=== PATIENT | female | born 2000 | race Caucasian/White ===

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

== ENCOUNTER 2022-01-18 21:42 | Inpatient (IN) | payer OTHER, MEDICAID, SELFPAY ==
[2022-01-18] VITALS (9 sets, daily range): BP systolic 95–104; BP diastolic 52–65; PULSE 59–78; RESP 18; TEMP 35.7; BMI 23.3
[2022-01-18] MEDS: miSOPROStol 100 mcg tablet 25 MCG VAGINAL (23:00)
[2022-01-18] MEDS: dextrose 5%-lactated ringers 1,000 ML 125 ML IV (23:00)
[2022-01-18 23:51] LABS: Basophils % 0.3 %; Eosinophils # 0.1 10^3/uL (0.0-0.8); Eosinophils % 0.6 %; Hematocrit 35.9 % (37.0-47.0); Hemoglobin 12.2 g/dL (11.5-15.3); Lymphocytes # 2.3 10^3/uL (1.5-6.5); Lymphocytes % 20.4 %; Mean Corpuscular Hemoglobin 29.8 pg (28.0-34.0); Mean Corpuscular Volume 87.8 fl (81-99); Mean Platelet Volume 9.6 fL (7.4-10.4); Monocytes % 8.6 %; Neutrophils # 7.75 10^3/uL (1.8-8.0); Neutrophils % 69.4 %; Nucleated Red Blood Cells % 0 %; Platelet Count 279 10^3/cmm (130-400); Red Blood Count 4.09 10^6/uL (4.1-5.3); Red Cell Distribution Width 13.2 % (12.1-15.1); White Blood Count 11.2 10^3/uL (4.5-13.0)
[2022-01-19] VITALS (93 sets, daily range): BP systolic 78–132; BP diastolic 43–76; PULSE 51–99; RESP 16–18; TEMP 35.6–36.8; O2SAT 91–100
[2022-01-19] MEDS: dextrose 5%-lactated ringers 1,000 ML 125 ML IV ×2 (05:21→14:10)
[2022-01-19] MEDS: oxytocin 30 UNIT/500 ML BAG IV (05:30)
--- NOTE | 2022-01-19 07:15 | PM.OBGYHP ---
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 Recovery from COVID infection in this . course complicated by maternal anemia in 3rd trimester- on iron supplementation. Denies cramping/contractions, LOF, vaginal bleeding. Good movement. care was good and starting in first trimester at [facility]. SVE /-3, soft, anterior per RN on admission Labs Blood type OB HPI: A (+) positive Rubella: Immune RPR: Negative GBS: Negative HBsAG: Negative Other Lab Information: Antibody neg, HIV neg, Initial H/H 12.7/37.6 GC/Chlam neg UCx no growth 1hr GTT 74- wnl Repeat 3rd trimester H/H 10.7/30.9 Review of Systems Const: Denies: fever(s) or chills Resp: Denies: dyspnea GI: Denies: abdominal pain : Denies: hematuria or vaginal bleeding Musc: Denies: extremity swelling Medications/Allergies Home Medications Medication Instructions Recorded Confirmed Last Taken Type ondansetron HCl 4 mg tablet 4 mg PO Q8H 08/26/21 08/26/21 Unknown History Allergies Allergy/AdvReac Type Severity Reaction Status Date / Time No Known Allergies Allergy Unverified 08/26/21 16:25 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: Surgical History History of tonsillectomy Social History Smoking and tobacco status: former smoker Personal Safety: Do you feel safe at home: Yes Victim of physical abuse: No Victim of emotional abuse: No Victim of sexual abuse: No Would you like help information on resources?: No History History History 1 Term 0 0 Miscarriages/Ectopic 0 Living Children 0 Vitals/I&O/Wt Last Vital Signs Temp 96.3 F L 01/18/22 22:24 Pulse 67 01/18/22 22:29 BP 104/65 01/18/22 22:29 Physical Exam Const: COMMON NORMALS: no acute distress, patient oriented x3, healthy appearing and alert Resp: COMMON NORMALS: normal respiratory effort and clear to auscultation bilaterally Cardio: COMMON NORMALS: regular rate, regular rhythm, S1 normal heart sound present, S2 normal heart sound present and No murmurs present (Cardio) GI: OTHER: Gravid : OTHER: SVE 4/60/-2, moderate, mid-position Extremity: COMMON NORMALS: normal to inspection and no pedal edema Psych: COMMON NORMALS: mental status grossly normal and cooperative Data 01/18/22 22:30 Results OB Ultrasound 08/22/21: normal anatomy US, posterior placenta A&P Assessment and plan (1) Term : Janine Douglass is a 21yo at 39w3d by LMP c/w 9wk US without significant PMHx presenting for induction. Routine CBC. Risks, benefits, adverse effects discussed with patient and agreeable to proceed with induction. s/p 1 dose cytotec, currently low dose pitocin. VS per protocol. No indication for GBS ppx as she is GBS negative. Anticipate vaginal delivery. (2) Encounter for induction of labor: (3) Anemia during : On iron supplementation, resolved on CBC on admission. Attestations Medical Necessity Statement*: Janine Douglass's hospital stay will require greater than 2 midnights for routine labor and delivery and care. Coding Level of Care Code Acute Instructional Aide for Chg Fwd Diagnoses Term Z34.90 Encounter for induction of labor Z34.90 Anemia during O99.019
[2022-01-19] MEDS: lactated ringers 1,000 ML 999 ML IV ×2 (12:00→13:06)
--- NOTE | 2022-01-19 14:45 | ANES.PREANE2 ---
Pre-Anesthetic Assessment Height/Weight: Height 1.63 m Weight 61.689 kg Temp Pulse Resp BP Pulse Ox O2 Del Method 96.8 F L 65 18 107/66 100 01/19/22 13:45 01/19/22 14:37 01/19/22 05:35 01/19/22 14:37 01/19/22 14:21 01/18/22 22:00 Familial anesthetic complications: none Was Beta Hoang taken within 24 hours: N/A Was Clonidine taken within 24 hours: N/A Social No alcohol and No tobacco Exam alert, oriented x 3, clear to auscultation bilaterally and regular rate & rhythm Airway Submandibular: within normal limits Cervical ROM: within normal limits Mallampati: Class II Dentition: full History/ROS No significant history except as noted CV/HEM Anemia Anesthetic Plan ASA status: 2 Anesthesia: Regional (specify below) (Labor epidural) Medications/Allergies Home Medications Medication Instructions Recorded Confirmed Last Taken Type ondansetron HCl 4 mg tablet 4 mg PO Q8H 08/26/21 08/26/21 Unknown History Allergies Allergy/AdvReac Type Severity Reaction Status Date / Time No Known Allergies Allergy Unverified 08/26/21 16:25 Current Medications Generic Name Dose Route Start Last Admin Trade Name Freq PRN Reason Stop Dose Admin Dextrose/Lactated Ringer's 1,000 mls @ 125 mls/hr 01/18/22 22:15 01/19/22 14:10 Dextrose 5%-Lactated Ringers IV 125 mls/hr .Q8H NATHAN Administration Oxytocin 30 unit in 500 mls @ 1 mls/hr 01/19/22 05:30 01/19/22 12:00 Pitocin IV 14 milliunit/min .Q24H NATHAN 14 mls/hr Titration Protocol 1 MILLIUNIT/MIN Ropivacaine 200 mg in 100 mls @ 13 mls/hr 01/19/22 12:30 01/19/22 13:14 Naropin Premix EPIDURAL 13 mls/hr .Q7H42M NATHAN Administration Lactated Ringer's 1,000 mls @ 999 mls/hr 01/19/22 12:19 01/19/22 14:24 Lactated Ringers IV Infused .Q1H1M PRN Infusion See label comments PFSH Anesthesia Surgical History History of tonsillectomy Social History Smoking and tobacco status: former smoker Female Reproductive History : 1 Spontaneous abortions: No Data Anesthesia 01/18/22 22:30 Short CBC 01/18/22 Range/Units 22:30 WBC 11.2 (4.5-13.0) 10^3/uL Hgb 12.2 (11.5-15.3) g/dL Hct 35.9 L (37.0-47.0) % MCV 87.8 (81-99) fl Plt Count 279 (130-400) 10^3/cmm Neut % (Auto) 69.4 % Neut # (Auto) 7.75 (1.8-8.0) 10^3/uL Blood Bank 01/18/22 22:30 Blood Type A Positive Rho(D) Type Positive Antibody Screen Positive Cardiac Studies: No Data to Display Anesthesia Procedures Epidural Time Out Performed: Yes Consents Signed: Procedure Consent Consent: requested by attending/covering physician, from patient, risks and benefits reviewed and patient agrees to proceed Lumbar Level: L3-L4 Epidural position: sitting Epidural procedure: sterile prep of area, 1% lidocaine to numb the area, 18 g needle, neg for paresthesia, test dose given, 1.5% xylocaine 1:200k epi, placed PCEA, no systemic response, L.U.D. no apparent complications and 0.2% Ropiavacaine @ mls/hr (13) Additional Comments: ALEXI at 4cm, cath at 9cm, 5mls of 2% lido--two attempts had to be done b/c first catheter had +heme (no test dose)
--- NOTE | 2022-01-19 16:27 | PM.DELIVERY ---
Delivery Note: Date of delivery: January 19, 2022 Pre-delivery diagnoses: Term Post-delivery diagnoses: Delivery of term viable female Procedure: Spontaneous Vaginal Delivery Delivering Physician: Pinky Vick DO Estimated blood loss (mL): 200 Pre-Delivery Course: Admitted for labor induction with SVE 1/50/-3. Given 1 dose cytotec with progression to 2.5/50/-2. Started on low dose pitocin and progressed appropriately to complete. Delivery: Patient progressed to complete. Patient placed in lithotomy position. Patient pushed with adequate effort. Head delivered in JOB position, loose nuchal cord was present and easily reduced. Shoulders and rest of body delivered without difficulty with epidural anesthesia. Mouth and nares bulb suctioned. Infant placed on maternal abdomen. Cord clamped and cut after 1 minute delay. Placenta spontaneously delivered and intact. Pitocin started. Fundus was noted to be moderately firm. The vagina and cervix were inspected and 1st degree bilateral sulcus lacerations and right labial lacerationswere noted. Right 1st degree laceration noted to be bleeding and repaired with 3-0 Vicryl with subsequent hemostasis noted. Fundus was noted following to be firm. Female born at 1547 with 8/9 weighing 7lb 2 oz and measuring 20.5 inches in length Placenta noted to be intact with centrally inserted 3-vessel umbilical cord. Complications: Maternal none none History History History 1 Term 0 0 Miscarriages/Ectopic 0 Living Children 0 Coding Level of Care Code Acute Library Information Technician for Chg Molly
[2022-01-19] MEDS: benzocaine-menthol 78 gm Canister 1 SPRAY TOPICAL (18:43)
[2022-01-19] MEDS: docusate sodium 100 mg Capsule PO (18:43)
[2022-01-19] MEDS: lanolin oint 7 gm 1 APPLIC TOPICAL (18:43)
--- NOTE | 2022-01-19 19:02 | PC.NURSE ---
Pt up to bathroom without difficulty. Large void 900mL+. Tyesha care demonstrated and performed by pt. Dermaplast used. Tyesha pad, underwear, gown changed. Pt then ambulated to OB8 for post and sitting up in chair. Oriented to room/call light. Visitors at bedside, food brought in by them. Educated pt to call for assistance with next time getting up to bathroom.
[2022-01-19] MEDS: ibuprofen 800 mg tablet PO (21:18)
[2022-01-20 01:50] VITALS: BP 105/68; PULSE 82; RESP 16; TEMP 36.6; O2SAT 98
[2022-01-20 04:11] LABS: Hematocrit 31.8 % (37.0-47.0); Hemoglobin 10.8 g/dL (11.5-15.3); Mean Corpuscular Hemoglobin 29.7 pg (28.0-34.0); Mean Corpuscular Volume 87.4 fl (81-99); Mean Platelet Volume 9.4 fL (7.4-10.4); Platelet Count 214 10^3/cmm (130-400); Red Blood Count 3.64 10^6/uL (4.1-5.3); White Blood Count 15.3 10^3/uL (4.5-13.0)
[2022-01-20 05:56] VITALS: BP 111/64; PULSE 70; RESP 16; TEMP 36.7
--- NOTE | 2022-01-20 07:16 | ANE.PACU2 ---
Inpatient post-anesthesia follow up: Airway intact: Yes Vital signs: Temperature 98.1 F Pulse Rate 70 Respiratory Rate 16 Blood Pressure 111/64 Pulse Oximetry 98 Oxygen Delivery Me thod Room Air Oxygen Flow Rate Fraction of Inspir ed Oxygen Hydration adequate: Yes Nausea and vomiting: No Pain level: 2 Mental status: Baseline
--- NOTE | 2022-01-20 07:35 | P.PN_ITS ---
STORAGE ARCHITECT Subjective Subjective: Interval history: Doing well overnight. Has voided without difficulty. Ambulating well. Does report some leg shaking when she has first been up going to the bathroom on her own. Vaginal bleeding is more than her typical period, no clots since right after delivery. No calf pain. Eating and drinking without nausea/vomiting. Denies lightheadedness/dizziness. exclusively- latching well on left, not wanting to latch on right side Vitals/I&O/Wt Last Vital Signs Temp 98.1 F 01/20/22 05:56 Pulse 70 01/20/22 05:56 Resp 16 01/20/22 05:56 BP 111/64 01/20/22 05:56 Pulse Ox 98 01/20/22 01:50 O2 Del Method 01/20/22 01:50 01/19/22 01/20/22 01/20/22 22:59 06:59 14:59 Intake Total 1027.417 / 4071.417 Output Total 1200 / 1200 Balance -172.583 / 2871.417 Weight last 48 hrs Weight 136 lb Physical Exam Const: COMMON NORMALS: no acute distress, patient oriented x3, healthy appearing and alert Resp: COMMON NORMALS: normal respiratory effort and clear to auscultation bilaterally AUSCULTATION: clear to auscultation bilaterally Cardio: COMMON NORMALS: regular rate, regular rhythm, S1 normal heart sound present, S2 normal heart sound present and No murmurs present (Cardio) RATE: regular rate RHYTHM: regular rhythm HEART SOUNDS: S1 normal heart sound present and S2 normal heart sound present GI: COMMON NORMALS: Soft to palpation and non-tender PALPATION: Yes Soft to palpation : OTHER: uterus firm and below the umbilicus Extremity: COMMON NORMALS: normal to inspection and no pedal edema Neuro: COMMON NORMALS: patient oriented x3 SENSORIUM/ORIENTATION: Yes alert Psych: COMMON NORMALS: mental status grossly normal and cooperative Urinary Catheter Management: Slater Latex: Cath Placed During This Visit: yes, but has since been removed by the nurse Reason for Continuing Indwelling Catheter: Decision to DC Catheter Urinary Catheter Date of Insertion: 01/19/22 Urinary Catheter Time of Insertion: 14:15 Date Urinary Catheter Removed: 01/19/22 Time Urinary Catheter Discontinued: 15:40 Data 01/20/22 04:06 A&P Assessment and plan (1) Spontaneous vaginal delivery: PPD #1 s/p with 1st degree lacerations repaired. Doing well. Hgb decreased from 12.2 on admission to 10.8. Continue routine PP care. Anticipate discharge tomorrow. Attestations Medical Necessity Statement*: Janine Rhodesris's hospital stay will require greater than 2 midnights for routine labor, delivery and care. Coding Level of Care Code Acute Sales And Service Representative for Chg Fwd Diagnoses Spontaneous vaginal delivery O80
[2022-01-20 09:28] VITALS: BP 107/66; PULSE 90; RESP 16; TEMP 36.6; O2SAT 98
[2022-01-20] MEDS: docusate sodium 100 mg Capsule PO ×2 (09:28→18:53)
[2022-01-20] MEDS: prenatal vitamin Capsule 1 CAP PO (09:28)
[2022-01-20] MEDS: ibuprofen 800 mg tablet PO ×2 (09:28→15:03)
[2022-01-20 16:37] VITALS: BP 102/66; PULSE 68; RESP 16; TEMP 36.7; O2SAT 98
[2022-01-20 22:40] VITALS: BP 110/72; PULSE 76; RESP 16; TEMP 36.9; O2SAT 98
[2022-01-21] MEDS: ibuprofen 800 mg tablet PO ×2 (02:13→10:49)
[2022-01-21 04:00] VITALS: BP 94/57; PULSE 66; RESP 14; TEMP 36.7; O2SAT 97
--- NOTE | 2022-01-21 07:50 | PM.OBGYDC ---
Discharge Providers ENROLLMENT ELIGIBILITY REPRESENTATIVE Date of Admission: 01/18/22 21:42 Date of Discharge: 01/27/22 Attending Provider at Admission: Pinky Vick DO Attending Provider at Discharge: Pinky Vick DO Diagnoses at Discharge Discharge Diagnosis (1) Spontaneous vaginal delivery: Status: Acute Reason for Visit Reason for Visit: induction Hospital Course Hospital Course Date of delivery: January 19, 2022 ? Pre-delivery diagnoses: Term ? Post-delivery diagnoses: Delivery of term viable female ?? Procedure: Spontaneous Vaginal Delivery? Delivering Physician: Pinky Vick DO ? Estimated blood loss (mL): 200 Pre-delivery Course: Admitted for labor induction with SVE 1/50/-3. Given 1 dose cytotec with progression to 2.5/50/-2. Started on low dose pitocin and progressed appropriately to complete. Delivery: Patient progressed to complete. Patient placed in lithotomy position. Patient pushed with adequate effort. Head delivered in JOB position, loose nuchal cord was present and easily reduced. Shoulders and rest of body delivered without difficulty with epidural anesthesia. Mouth and nares bulb suctioned. placed on maternal abdomen. Cord clamped and cut after 1 minute delay.? Placenta spontaneously delivered and intact. Pitocin started. Fundus was noted to be moderately firm. The vagina and cervix were inspected and 1st degree bilateral sulcus lacerations and right labial lacerationswere noted. Right 1st degree laceration noted to be bleeding and repaired with 3-0 Vicryl with subsequent hemostasis noted. Fundus was noted following to be firm. Female born at 1547 with 8/9 weighing 7lb 2 oz and measuring 20.5 inches in length Placenta noted to be intact with centrally inserted 3-vessel umbilical cord. Complications: Maternal none ? none Hospital course: Patient underwent on 01/19/22. course was uncomplicated. Following delivery patient ambulated well, tolerated a normal diet without nausea or vomiting. Pain was controlled on PO medications, well, no leg/calf pain, no calf/leg swelling, normal urination, passing gas and normal bowel movements. Vaginal bleeding thin lochia and decreasing. labs significant for Hgb 10.8 from Hgb 12.2. Follow-up planned for 2 and 6 weeks . Warning signs for endometritis, pre-eclampsia, DVT/PE, mastitis were reviewed, discussed additional warning signs including increased vaginal bleeding, worsening abdominal pain. Pelvic rest and activity precautions reviewed as well. She is discharged on 01/21/22 in stable condition. Information Peripartum Data: Infant Delivery Method: Vaginal Physical Exam Const: COMMON NORMALS: no acute distress, patient oriented x3, healthy appearing and alert Resp: COMMON NORMALS: normal respiratory effort and clear to auscultation bilaterally AUSCULTATION: clear to auscultation bilaterally Cardio: COMMON NORMALS: regular rate, regular rhythm, S1 normal heart sound present, S2 normal heart sound present and No murmurs present (Cardio) RATE: regular rate RHYTHM: regular rhythm HEART SOUNDS: S1 normal heart sound present and S2 normal heart sound present GI: COMMON NORMALS: Soft to palpation and non-tender PALPATION: Yes Soft to palpation : OTHER: uterus firm and below the umbilicus Extremity: COMMON NORMALS: normal to inspection and no pedal edema Neuro: COMMON NORMALS: patient oriented x3 SENSORIUM/ORIENTATION: Yes alert Psych: COMMON NORMALS: mental status grossly normal and cooperative Urinary Catheter Management: Slater Latex: Cath Placed During This Visit: yes, but has since been removed by the nurse Reason for Continuing Indwelling Catheter: Decision to DC Catheter Urinary Catheter Date of Insertion: 01/19/22 Urinary Catheter Time of Insertion: 14:15 Date Urinary Catheter Removed: 01/19/22 Time Urinary Catheter Discontinued: 15:40 History History History 1 Term 0 0 Miscarriages/Ectopic 0 Living Children 0 Discharge Data Studies Completed and Pending Laboratory Results WBC 15.3 10^3/uL (4.5-13.0) H 01/20/22 04:06 RBC 3.64 10^6/uL (4.1-5.3) L 01/20/22 04:06 Hgb 10.8 g/dL (11.5-15.3) L 01/20/22 04:06 Hct 31.8 % (37.0-47.0) L 01/20/22 04:06 MCV 87.4 fl (81-99) 01/20/22 04:06 MCH 29.7 pg (28.0-34.0) 01/20/22 04:06 MCHC 34.0 g/dL (30.0-36.0) 01/20/22 04:06 RDW 13.0 % (12.1-15.1) 01/20/22 04:06 Plt Count 214 10^3/cmm (130-400) 01/20/22 04:06 MPV 9.4 fL (7.4-10.4) 01/20/22 04:06 Neut % (Auto) 69.4 % 01/18/22 22:30 Lymph % (Auto) 20.4 % 01/18/22 22:30 Posey % (Auto) 8.6 % 01/18/22 22:30 Eos % (Auto) 0.6 % 01/18/22 22:30 Baso % (Auto) 0.3 % 01/18/22 22: Neut # (Auto) 7.75 10^3/uL (1.8-8.0) 01/18/22 22:30 Lymph # (Auto) 2.3 10^3/uL (1.5-6.5) 01/18/22 22:30 [place]osey # (Auto) 1.0 10^3/uL (0.2-0.9) H 01/18/22 22:30 Eos # (Auto) 0.1 10^3/uL (0.0-0.8) 01/18/22 22:30 Baso # (Auto) 0.0 10^3/uL (0.0-0.1) 01/18/22 22:30 Nucleated RBC % (auto) 0 % 01/18/22 22: Nucleated RBCs # 0.0 /100WBC 01/18/22 22:30 Blood Type A Positive 01/18/22:30 Rho(D) Type Positive 01/18/22 22:30 Antibody Screen Positive 01/18/22 22:30 Antibody Identification Non-Specific Cold Antibody 01/18/22 22:30 Vitals Last Vital Signs Temp 98.0 F 01/21/22 04:00 Pulse 66 01/21/22 04:00 Resp 14 01/21/22 04:00 BP 94/57 01/21/22 04:00 Pulse Ox 97 01/21/22 04:00 O2 Del Method 01/21/22 04:00 Discharge Plan Discharge Patient Disposition: Home Condition: Stable Prescriptions: New ibuprofen 800 mg Tablet 800 mg PO TID PRN (Reason: Pain, Mild) Qty: 60 0RF docusate sodium 100 mg Capsule 100 mg PO BID 14 Days Qty: 28 0RF -U 106.5-1 mg Capsule 1 cap PO DAILY Qty: 90 0RF Discontinued ondansetron HCl 4 mg tablet 4 mg PO Q8H Discharge Orders: Discharge Order (Routine); Ordered 01/21/22 Ordered By: Pinky Vick Referrals: Pinky Vick DO [Physician] - 02/04/22 9:30 am (Your [address] Vick is March 04, 2022 at 9:30 a.m.) Discharge Diet: Regular Discharge Activity: Increase activity as tolerated Patient Instructions: Ibuprofen (By mouth), Laxative, Stool Softeners (By mouth), Depression (DC), Perineal Care (DC), Expression, Collection and Storage of Breast Milk (DC), How to Hold and Breastfeed Your Baby (DC), and Nipple Soreness (DC), and Breast Engorgement (DC), and Plugged Ducts (DC), How to Increase Your Milk Supply (DC), and Your Diet (DC), Care For Your Stitches (DC), Bleeding (DC), Perineal Tear with Delivery (DC), Vaginal Delivery (DC), Breast Care for the Mother (DC), OB Care at Home, Abnormal Bleeding Activity Restrictions/Additional Instructions: Pelvic rest for 6 weeks. Plan of Treatment: Follow-up with [facility]. [facility] at 2 and 6 weeks . Discharge Attestations ENROLLMENT ELIGIBILITY REPRESENTATIVE Time Spent in Discharge Care*: less than 30 min Coding Level of Care Code Acute Battery Hand for Chg Fwd Diagnoses Spontaneous vaginal delivery O80
[2022-01-21] MEDS: prenatal vitamin Capsule 1 CAP PO (10:49)
[2022-01-21] MEDS: docusate sodium 100 mg Capsule PO (10:49)
[2022-01-21 12:00] VITALS: BP 107/67; PULSE 66; RESP 18; TEMP 36.4; O2SAT 99
== END 2022-01-21 12:04 | disposition home or self-care (01) | DRG 807 ==
PROVIDERS: Admitting Provider Family Medicine; Visit Provider Family Medicine
DX: O69.2XX0 Labor and delivery complicated by other cord entanglement, with compression, not applicable or unspecified (principal); Z37.0 Single live birth; O99.02 Anemia complicating childbirth; D64.9 Anemia, unspecified; O70.0 First degree perineal laceration during delivery; Z3A.39 39 weeks gestation of pregnancy; Z86.16 Personal history of COVID-19
CPT/HCPCS: 36415; 51702; 59025; 59409; 80503; 85025; 85027; 86850; 86870; 86900; 99211; J2590; J2795; J7120; J7121

== ENCOUNTER 2022-12-25 13:34 | Outpatient (CLI) | payer OTHER, MEDICAID, SELFPAY ==
--- NOTE | 2022-12-25 | US_ITS ---
WS: [id number] EARLY OBSTETRICAL ULTRASOUND (<14 WEEKS). HISTORY: 1ST TRIMESTER dating COMPARISON: None available. Single intrauterine gestational sac is identified. Cardiac activity at 157 BPM. [place]-rump length mirna sures 1.6 cm which corresponds to a gestation of 8w0d. Normal-appearing yolk sac and amnion demonstra janusz. No subchorionic hemorrhage. Trace free fluid. Normal size ovaries with no mass. IMPRESSION: 1. Single intrauterine gestation of 8 weeks 0 days with an EDC of 08/06/2023. 2. Normal cardiac activity.
== END 2022-12-25 13:35 | disposition home or self-care (01) ==
LOC: RAD 13:36
PROVIDERS: Visit Provider Family Medicine
DX: Z36.87 Encounter for antenatal screening for uncertain dates (principal)
CPT/HCPCS: 76801

== ENCOUNTER 2023-03-08 12:05 | Outpatient (CLI) | payer MEDICAID, SELFPAY ==
--- NOTE | 2023-03-08 12:33 | USR_ITS ---
PROCEDURE INFORMATION: Exam: US , Limited Exam date and time: 03/08/2023 12:47 PM Age: 22 years old Clinical indication: Screening exam; Routine US, uterus; Additional info: Anatomy check TECHNIQUE: Imaging protocol: Real-time ultrasound of the maternal uterus with image documentation. Exam focused on the clinical indication. COMPARISON: No relevant prior studies available. FINDINGS: Gestation: Intrauterine gestation. heart rate: heart rate 164 bpm. Amniotic fluid index: ALICIA 10.1 cm. BIOMETRY: Gestational age (AUA): Estimated gestational age 18 weeks 3 days. Estimated due date (AUA): Estimated due date 08/06/2023 Biparietal diameter (BPD): BPD 4.0 cm. Head circumference (HC): Head circumference measures 14.9 cm. Abdominal circumference (AC): Abdominal circumference 13.1 cm. Femur length (FL): Femur length 2.8 cm. MATERNAL: Cervix: Cervix measures 4.4 cm. US/US OB >= 14 weeks fetus [id number] IMPRESSION: Unremarkable limited exam.
== END 2023-03-08 12:06 | disposition home or self-care (01) ==
LOC: RAD 12:07
PROVIDERS: Visit Provider Family Medicine
DX: Z34.92 Encounter for supervision of normal pregnancy, unspecified, second trimester (principal)
CPT/HCPCS: 76805

== ENCOUNTER 2023-07-14 06:37 | Outpatient (CLI) | payer MEDICAID, SELFPAY ==
[2023-07-14] VITALS (27 sets, daily range): BP systolic 93–99; BP diastolic 53–57; PULSE 61–86; O2SAT 97–100; BMI 24.2
[2023-07-14 07:30] LABS: Basophils % 0.4 %; Eosinophils # 0.1 10^3/uL (0.0-0.8); Eosinophils % 1.1 %; Hematocrit 32.8 % (36-47); Lymphocytes # 2.3 10^3/uL (1.5-6.5); Lymphocytes % 24.6 %; Mean Corpuscular HGB Conc 33.2 g/dL (30-55); Mean Corpuscular Hemoglobin 28.3 pg (27-33); Mean Corpuscular Volume 85.2 fl (85-98); Mean Platelet Volume 8.9 fL (7.4-10.4); Monocytes # 0.8 10^3/uL (0.2-0.9); Monocytes % 8.6 %; Neutrophils # 5.87 10^3/uL (1.8-8.0); Neutrophils % 64.1 %; Nucleated Red Blood Cells % 0 %; Platelet Count 255 10^3/cmm (157-399); Red Blood Count 3.85 10^6/uL (3.85-5.65); Red Cell Distribution Width 13.2 % (12.1-15.1); White Blood Count 9.17 10^3/uL (4.5-13.0)
[2023-07-14] MEDS: terbutaline 1 mg/mL INJ 0.25 MG SUBCUT (07:38)
--- NOTE | 2023-07-14 07:59 | PC.NURSE ---
Version Rianna Schilling RN, Rianna Killian RN, Bonnie [facility], [place]- Student, Dr. espino, and Dr. Vick present in room for procedure 0744: bedside US verification of breach presentation 0745: Time out performed-see intervention 0745: Start of procedure 0747: US check, HR 150s. 2m and 2s 0748: Resume version [id number]: Pause for placement check, HR 120s with audible variables 0752: Dr. Espino performs final US verification and baby is noted to be head down
--- NOTE | 2023-07-14 08:12 | P.SS_ITS ---
Short Stay Summary Providers Date of Admit/Discharge: 07/14/23 Attending Provider: Brady Lara MD Chief Complaint: version HPI History of Present Illness Janine is a 22-year-old at 37.3 weeks gestation by LMP consistent with 8-week ultrasound. Her is complicated by vaping during , currently with breech presentation. The patient presents for a scheduled elective external cephalic version due to breech position. The patient is seen by Dr. Vick for her OB care and I was consulted to perform an ECV. The patient has been feeling well and has had no complaints of leaking fluid, bleeding, chest pains, shortness of breath, fevers. We had discussed the procedure for ECV in clinic earlier this week and she confirmed that she wished to proceed with the procedure. Home Meds/Allergies Home Medications and Allergies Allergies Allergy/AdvReac Type Severity Reaction Status Date / Time No Known Allergies Allergy Verified 07/14/23 07:27 PFSH Acute PFSH: Medical History (Updated 07/13/23 @ 00:01 by MIRIAM Montilla) Anemia during Surgical History (Updated 07/13/23 @ 00:01 by MIRIAM Montilla) Hx of wisdom tooth extraction History of tonsillectomy Social History (Updated 07/12/23 @ 08:48 by Brady Lara MD) Smoking and tobacco/nicotine status: current every day tobacco/nicotine user e- cigarettes E-Cigarette Details: vaporizer device E-cig/vape details: 2 weeks Alcohol intake: never Substance/Drug Use: never Female Reproductive History: : 2 Spontaneous abortions: No Vitals/I&O/Wt Last Vital Signs Pulse 70 07/14/23 08:07 BP 98/56 07/14/23 07:56 Pulse Ox 97 07/14/23 08:07 Weight last 48 hrs Weight 141 lb Physical Exam Narrative: General: Alert and oriented x3 Cardiac: Regular rate and rhythm without murmurs Lungs: Clear to auscultation bilaterally without wheezes, crackles or rhonchi Abdomen: Soft, non-tender, fundus consistent with gestational age Extremities: Trace edema in the bilateral lower extremities Hospital Course Hospital Course The patient was admitted for an elective external cephalic version. Please see procedure note for full details. Patient has done well throughout the procedure and after the procedure heart tones are in the mid 120s with moderate variability and good accelerations and a category 1 tracing. No contractions are currently noted on the monitor. Precautions were discussed with the patient and her significant other in terms of what to watch for for complications. This would include but are not limited to decreased movement, vaginal bleeding, leakage of fluid, shortness of breath, chest pain, contractions, severe pain. SSS Data Data Completed and Pending: Pending at discharge Category Date Time Status Type and Screen R outine Lab 07/14/23 06:45 Received Procedures Performed: External cephalic version Diagnoses at Discharge Other Information Additional DC diagnoses/information: 1. Intrauterine at 37.3 weeks gestation 2. Vaping during 3. Breech presentation now converted to vertex presentation status post successful external cephalic version. 4. Measuring small for gestational age Discharge Plan Discharge Patient Disposition: Home Prescriptions: No Action -U 106.5-1 mg Capsule 1 cap PO DAILY Qty: 90 0RF Discharge Orders: Discharge Order (Routine); Ordered 07/14/23 Ordered By: Brady Lara Referrals: Pinky Vick DO [Primary Care Provider] - (As scheduled - Wednesday) Diet: Regular Patient Instructions: Movement (DC), Movement (GEN), External Cephalic Version (GEN), OB Undelivered Discharge Activity Restrictions/Additional Instructions: If you have any concerns for complications, return to OB right away. These would be things like vaginal bleeding, leaking fluid, severe abdominal pain, frequent contractions, chest pain, shortness of breath, dizziness, decreased movement. Attestations Medical Necessity Statement*: The patient was admitted for an outpatient procedure. Her stay will not cross 2 midnights. Time Spent in Patient Care*: greater than 30 min Quality Metrics Clinical Quality Measures: [ No reported AMI, CVA or VTE this stay ] Coding Level of Care Code Acute Code for Chg Fwd
--- NOTE | 2023-07-14 08:18 | PM.ACPR ---
Procedure/Consent Procedure Narrative: Name of procedure: External cephalic version Date of procedure: 07/14/2023 Diagnosis: Breech presentation Procedure: I discussed with the patient and her significant other the potential risks included with attempting an external cephalic version which included but were not limited to vaginal bleeding, decreased heart rate, rupture membranes, placental abruption, labor, pain, need for emergent section, . The patient wished to proceed with the external cephalic version. An IV was placed and position was determined to be in the breech position. An NST was done prior to starting and a reactive strip was noted. Fluid volume was estimated to be on the low average range but sufficient for attempting version. A dose of terbutaline was given to help relax the uterus. Gel was placed on the patient's abdomen and the head was located and pressure was placed on the posterior portion of the head while the infant's buttocks was pulled up out of the pelvis. A forward somersault was attempted. After 2 minutes, the procedure was paused and heart tones were still noted to be in the 150s. The was very active during the procedure. The procedure was restarted and with continued pressure, the baby completed the forward somersault after approximately 1 more minute and was in the vertex position. heart tones were noted to be in the 110 range. Head position was confirmed in the vertex position. The patient was watched and heart tones gradually improved into the mid 130s with moderate variability and good accelerations. Currently the baby has a category 1 tracing. The mother tolerated the procedure well. No complications have been noted at this time. They will watch for signs of complications and return right away if the present themselves. All questions were answered. We will watch the patient on the monitor for 1 hour and if there are no concerning findings at that time may discharge home. Proceed with routine supervision of with Dr. Nicanor kathleen.
== END 2023-07-14 09:22 | disposition home or self-care (01) ==
LOC: OPOB 06:38 → OBGYN 06:41
PROVIDERS: PCP Family Medicine; Visit Provider Family Medicine
DX: O26.899 Other specified pregnancy related conditions, unspecified trimester (principal); Z3A.00 Weeks of gestation of pregnancy not specified
CPT/HCPCS: 85025; 86850; 86900; 96372; J3105

== ENCOUNTER 2023-07-18 11:24 | Outpatient (CLI) | payer MEDICAID, SELFPAY ==
[2023-07-18 11:25] VITALS: BMI 24.0
[2023-07-18 11:34] VITALS: BP 108/62; PULSE 72
[2023-07-18 11:53] VITALS: BP 98/57; PULSE 71
[2023-07-18 12:07] VITALS: RESP 16
[2023-07-18 12:20] VITALS: RESP 16
== END 2023-07-18 12:20 | disposition home or self-care (01) ==
LOC: OPOB 11:25 → OBGYN 11:25
PROVIDERS: PCP Family Medicine; Visit Provider Family Medicine
DX: O26.899 Other specified pregnancy related conditions, unspecified trimester (principal)
CPT/HCPCS: 59025; 83986; 99211

== ENCOUNTER 2023-07-25 12:03 | Outpatient (CLI) | payer MEDICAID, SELFPAY ==
[2023-07-25] VITALS (8 sets, daily range): BP systolic 88–102; BP diastolic 50–59; PULSE 62–73; BMI 24.0
--- NOTE | 2023-07-25 12:34 | USR_ITS ---
PROCEDURE INFORMATION: Exam: US , Limited Exam date and time: 07/25/2023 1:06 PM Age: 22 years old Clinical indication: Lmp or gestational age (in weeks): 39w; Antepartum complications; Bleeding; ; Additional info: Vaginal bleeding post version, placental location, alicia LABS AND CLINICAL REPORTS: Gestational age (Established): 39 w 0 d Estimated due date (Established): 08/01/2023 TECHNIQUE: Imaging protocol: Real-time ultrasound of the maternal uterus with image documentation. Exam focused on the clinical indication. COMPARISON: US OB >= 14 weeks fetus [id number] 03/08/2023 12:47 PM FINDINGS: Gestation: Single intrauterine . heart rate: 136 bpm Placenta: Posterior/fundal placenta. Vertex position. Amniotic fluid index: 11.16 cm. MATERNAL: Cervix: Not well visualized. Cervical length measures 4.1 cm. US/US OB limited [id number] IMPRESSION: Single viable intrauterine with ALICIA of 11.16 cm.
== END 2023-07-25 14:19 | disposition home or self-care (01) ==
LOC: OPOB 12:04 → OBGYN 12:05
PROVIDERS: PCP Family Medicine; Visit Provider Family Medicine
DX: O46.93 Antepartum hemorrhage, unspecified, third trimester (principal); Z3A.39 39 weeks gestation of pregnancy
CPT/HCPCS: 59025; 76815; 99211

== ENCOUNTER 2023-07-27 09:38 | Inpatient (IN) | payer OTHER, MEDICAID, SELFPAY ==
[2023-07-27] VITALS (72 sets, daily range): BP systolic 79–116; BP diastolic 44–70; PULSE 55–93; RESP 16–18; TEMP 36.6–36.9; O2SAT 91–100; BMI 23.8
[2023-07-27 06:54] LABS: Basophils # 0.1 10^3/uL (0.0-0.1); Basophils % 0.4 %; Eosinophils # 0.1 10^3/uL (0.0-0.8); Eosinophils % 0.9 %; Hematocrit 34.6 % (36-47); Lymphocytes # 3.1 10^3/uL (1.5-6.5); Lymphocytes % 25.3 %; Mean Corpuscular HGB Conc 32.9 g/dL (30-55); Mean Corpuscular Hemoglobin 27.9 pg (27-33); Mean Corpuscular Volume 84.6 fl (85-98); Mean Platelet Volume 9.4 fL (7.4-10.4); Monocytes # 0.9 10^3/uL (0.2-0.9); Neutrophils # 7.97 10^3/uL (1.8-8.0); Neutrophils % 65.5 %; Nucleated Red Blood Cells % 0 %; Platelet Count 233 10^3/cmm (157-399); Red Blood Count 4.09 10^6/uL (3.85-5.65); Red Cell Distribution Width 13.7 % (12.1-15.1); White Blood Count 12.17 10^3/uL (4.5-13.0)
[2023-07-27] MEDS: miSOPROStol 100 mcg tablet 25 MCG VAGINAL (07:08)
--- NOTE | 2023-07-27 08:38 | PM.OBGYHP ---
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 PMHx includes tobacco use. course complicated by breech presentation at approx 36 weeks and underwent successful ECV with Dr. Lara and has remained in vertex presentation. Denies cramping/contractions, LOF. Good movement. She does report some occasional pink tinged mucous when she wipes and some dark brown discharge occasionally as well. care was good and starting at in the first trimester. Present Details : 2 Para: 1 Labs Blood type OB HPI: A (+) positive Rubella: Immune RPR: Negative GBS: Negative HBsAG: Negative Other Lab Information: HCV ab negative HIV negative Initial H/H 13.6/39.1 GC/Chlam negative 1hr GTT passed- 85 3rd trimester H/H 11.3/32.8 Review of Systems Narrative: General: Denies fevers, chills, fatigue, malaise. Ears/Nose/Throat: Denies nasal congestion, sore throat. Cardiovascular: Denies chest pains, peripheral edema. Respiratory: Denies cough, wheezing. Gastrointestinal: Denies nausea, vomiting, diarrhea, constipation, abdominal pain. Genitourinary: Denies dysuria. Skin: Denies rash. 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: Medical History (Updated 07/27/23 @ 09:34 by Pinky Vick DO) Breech presentation Anemia during Surgical History (Updated 07/13/23 @ 00:01 by MIRIAM Montilla) Hx of wisdom tooth extraction History of tonsillectomy Social History (Updated 07/12/23 @ 08:48 by Brady Lara MD) Smoking and tobacco/nicotine status: current every day tobacco/nicotine user e-cigarettes E-Cigarette Details: vaporizer device E-cig/vape details: 2 weeks Alcohol intake: never Substance/Drug Use: never Personal Safety: Do you feel safe at home: Yes Victim of physical abuse: No Victim of emotional abuse: No Victim of sexual abuse: No Would you like help information on resources?: No History History History 2 Term 1 0 Miscarriages/Ectopic 0 Living Children 1 Past Pregnancies Del. Date GA/Weeks Outcome Route Wt Inf Gender Labor Lgth Comp. Anesthesia Location 01/19/22 39 live - full term Vaginal 7 lb 2 oz Female 15 hrs regional [facility] - Dr Vick Care BRANDON Calculator Estimated Delivery Date Method Current WG Current Estimate 08/01/23 LMP (Certain) 39w 2d Other Estimates 08/06/23 Ultrasound #1 38w 4d 08/01/23 Manual 39w 2d Vitals/I&O/Wt Last Vital Signs Pulse 55 L 07/27/23 07:43 BP 94/54 07/27/23 07:43 O2 Del Method Room Air 07/27/23 05:55 Weight last 48 hrs Weight 138 lb 8 oz Physical Exam Narrative: General: Alert and oriented x3 Cardiac: Regular rate and rhythm without murmurs Lungs: Clear to auscultation bilaterally without wheezes, crackles or rhonchi Abdomen: Soft, non-tender, fundus consistent with gestational age Extremities:No edema to lower extremities Data 07/27/23 06:25 Results Labs OB ([facility]): Obstetrics US 07/25/23 Blood Type A Positive 07/27/23 Antibody Screen Negative 07/27/23 Hct 34.6 % (36-47) L 07/27/23 Hgb 11.40 g/dL (12.4-14.8) L 07/27/23 Rho(D) Type Rh positive 07/27/23 Plt Count 233 10^3/cmm (157-399) 07/27/23 A&P Assessment and plan (1) Elective induction of labor planned: (2) Successful external cephalic version: (3) Term : Plan 22yo F at 39w2d admitted for induction of labor. Currently Category I FHT. SVE 2/50/-3 on admission per RN. Plan for dose cytotec and recheck in 4 hours. Intermittent EFM per protocol. Routine CBC and Blood typing. May have epidural when desired, fentanyl protocol. Attestations Medical Necessity Statement*: Janine Elisa Douglass's hospital stay will require greater than 2 midnights for labor and delivery and care. Coding Level of Care Code Acute Code for Chg Fwd Diagnoses Elective induction of labor planned Successful external cephalic version Term Z34.90
[2023-07-27] MEDS: oxytocin 30 UNIT/500 ML BAG IV (12:30)
[2023-07-27] MEDS: dextrose 5%-lactated ringers 1,000 ML 125 ML IV ×2 (12:37→19:14)
[2023-07-27] MEDS: ROPivacaine syringe 100 MG/50 ML SYRINGE 10 MG EPIDURAL (17:53)
[2023-07-27] MEDS: lactated ringers 1,000 ML 999 ML IV (17:53)
--- NOTE | 2023-07-27 18:21 | P.ANESASSM_ITS ---
Pre-Anesthetic Assessment Height/Weight: Height 1.63 m Weight 62.823 kg Temp Pulse Resp BP Pulse Ox O2 Del Method 98.4 F 84 18 114/65 91 Room Air 07/27/23 16:00 07/27/23 18:18 07/27/23 16:00 07/27/23 18:15 07/27/23 18:18 07/27/23 05:55 Preop Diagnosis: Labor pain LINDA Was Beta Hoang taken within 24 hours: N/A Was Clonidine taken within 24 hours: N/A Social No alcohol and No tobacco Exam alert, oriented x 3, clear to auscultation bilaterally and regular rate & rhythm Airway Submandibular: within normal limits Cervical ROM: within normal limits Mallampati: Class II Dentition: full History/ROS No significant history except as noted and No significant complaints Pulmonary None reported CV/HEM None reported None reported Hepatic None reported GI None reported Metabolic None reported Musc/skel None reported Neuropsych None reported Anesthetic Plan ASA status: 2 Anesthesia: Anesthesia Evaluation and Regional (specify below) (LINDA) Risk of > 500 ml blood loss (7ml/kg in children): No Medications/Allergies Home Medications Medication Instructions Recorded Confirmed Last Taken Type multivitamin no.51-ferrous 1 cap PO DAILY #90 caps 01/21/22 07/27/23 07/26/23 Rx fumarate 106.5 mg-folic acid 1 mg capsule (-U) Allergies Allergy/AdvReac Type Severity Reaction Status Date / Time No Known Allergies Allergy Verified 07/14/23 07:27 Current Medications Generic Name Dose Route Start Last Admin Trade Name Freq PRN Reason Stop Dose Admin Dextrose/Lactated Ringer's 1,000 mls @ 125 mls/hr 07/27/23 06:30 07/27/23 12:37 Dextrose 5%-Lactated Ringers IV 125 mls/hr .Q8H NATHAN Administration Oxytocin 30 unit in 500 mls @ 1 mls/hr 07/27/23 12:30 07/27/23 15:45 Pitocin IV 15 milliunit/min .Q24H NATHAN 15 mls/hr Titration Protocol 1 MILLIUNIT/MIN Lactated Ringer's 1,000 mls @ 999 mls/hr 07/27/23 17:07 07/27/23 17:53 Lactated Ringers IV 999 mls/hr .Q1H1M PRN Administration See label comments Ropivacaine 100 mg in 50 mls @ 10 mls/hr 07/27/23 17:15 07/27/23 17:53 Naropin Syringe EPIDURAL 10 mls/hr .Q5H ANTHAN Administration PFSH Anesthesia Medical History (Updated 07/27/23 @ 09:34 by Pinky Vick DO) Breech presentation Anemia during Surgical History (Updated 07/13/23 @ 00:01 by MIRIAM Montilla) Hx of wisdom tooth extraction History of tonsillectomy Social History (Updated 07/12/23 @ 08:48 by Brady Lara MD) Smoking and tobacco/nicotine status: current every day tobacco/nicotine user e- cigarettes E-Cigarette Details: vaporizer device E-cig/vape details: 2 weeks Alcohol intake: never Substance/Drug Use: never Female Reproductive History : 2 Spontaneous abortions: No Data Anesthesia 07/27/23 06:25 Short CBC 07/27/23 Range/Units 06:25 WBC 12.17 (4.5-13.0) 10^3/uL Hgb 11.40 L (12.4-14.8) g/dL Hct 34.6 L (36-47) % MCV 84.6 L (85-98) fl Plt Count 233 (157-399) 10^3/cmm Neut % (Auto) 65.5 % Neut # (Auto) 7.97 (1.8-8.0) 10^3/uL Blood Bank 07/27/23 06:25 Blood Type A Positive Rho(D) Type Rh positive Antibody Screen Negative Cardiac Studies: 2 No Data to Display
--- NOTE | 2023-07-27 18:23 | ANES.PROC ---
Anesthesia Procedures Procedure/Date: 07/27/23 Epidural: Time Out Performed: Yes Consents Signed: Procedure Consent Consent: requested by attending/covering physician, from patient, risks and benefits reviewed and patient agrees to proceed Lumbar Level: L3-L4 Epidural position: sitting Epidural procedure: sterile prep of area, 1% lidocaine to numb the area, 18 g needle, neg for paresthesia, test dose given, 1.5% xylocaine 1:200k epi (5cc), 0.2% Ropivacaine bolus ml (4cc and Fentanyl 100mcg), no systemic response, sterile dressing applied, L.U.D. no apparent complications and 0.2% Ropiavacaine @ mls/hr (13cc/hour) Additional Comments: Pt tolerated well
[2023-07-27] MEDS: oxytocin 30 UNIT/500 ML BAG 600 UNIT IV (22:07)
--- NOTE | 2023-07-27 22:18 | P.PCNOB_ITS ---
Delivery Note: Date of delivery: July 27, 2023 Pre-delivery diagnoses: Term Elective induction of labor Post-delivery diagnoses: delivery of term viable female Procedure: Spontaneous vaginal delivery Delivering Physician: Pinky Vick DO Estimated blood loss (mL): 100 Pre-Delivery Course: Patient admitted on 07/27/2023 in the morning with initial SVE of 2/50/-3. Given 1 dose Cytotec with recheck approximately 4 hours with report of softer cervix on exam but continued at 2/50/-3. At that time moderate dose Pitocin was started. She slowly progressed to 3/70/-3 and following requested epidural. After epidural anesthesia was obtained SVE was 5/75/-3. Due to low maternal blood pressures with intermittent decelerations Pitocin was stopped. She continued to contract every 3 to 4 minutes but without cervical change person approximately 2 hours. At that time AROM was performed at 2055 with clear fluid. Both mother and baby tolerated procedure well. After AROM SVE was 6/90/-3 after which she quickly progressed to complete. Delivery: Patient progressed to complete. Patient placed in lithotomy position. Patient pushed with adequate effort. Head delivered in JOB position, loose nuchal cord was present and was easily reduced. Shoulders and rest of body delivered without difficulty with adequate epidural anesthesia. Mouth and nares bulb suctioned. placed on maternal abdomen. Cord clamped and cut after 1 minute delay. Placenta spontaneously delivered and intact. Pitocin started. Fundus was noted to be firm. The vagina and cervix were inspected and noted to have left periurethral first-degree laceration which was noted to be hemostatic and not repaired. Right labial abrasion also noted. Fundus was again noted to be firm. Female born at 2157 with 8/9 weighing 7 pounds 3 ounces and measuring 21.25 inches in length, 13.75 inches head circumference and 13.5 inches chest circumference. Placenta noted to be intact with centrally inserted umbilical cord with three- vessel cord. Complications: Maternal none Infant none History History History 2 Term 2 0 Miscarriages/Ectopic 0 Living Children 2 Past Pregnancies Del. Date GA/Weeks Outcome Route Wt Inf Gender Labor Lgth Comp. Anesth esia Location 01/19/22 39 live - full term Vaginal 7 lb 2 oz Female 15 hrs regional [facility] - Dr Vick A&P Assessment and plan (1) Spontaneous vaginal delivery: Coding Level of Care Code Acute Code for Chg Fwd Diagnoses Spontaneous vaginal delivery O80
[2023-07-28] VITALS (8 sets, daily range): BP systolic 93–106; BP diastolic 50–65; PULSE 67–86; RESP 15–18; TEMP 36.3–36.8; O2SAT 96–98
[2023-07-28] MEDS: ibuprofen 800 mg tablet PO ×4 (00:01→20:06)
[2023-07-28] MEDS: lanolin oint 7 gm 1 APPLIC TOPICAL (00:02)
[2023-07-28] MEDS: benzocaine-menthol 78 gm Canister 1 SPRAY TOPICAL (00:02)
--- NOTE | 2023-07-28 07:30 | PM.OBGYPN ---
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 Has voided without difficulty. Ambulating well. Vaginal bleeding has been decreasing. Denies passing clots. No calf pain. Eating and drinking without nausea/vomiting. Denies lightheadedness/dizziness. exclusively- latching ok- has had to try a nipple shield. Vitals/I&O/Wt Last Vital Signs Temp 97.6 F 07/28/23 22:00 Pulse 69 07/28/23 22:00 Resp 16 07/28/23 22:00 BP 101/65 07/28/23 22:00 Pulse Ox 97 07/28/23 22:00 O2 Del Method Room Air 07/28/23 22:00 07/28/23 07/28/23 07/28/23 06:59 14:59 22:59 Intake Total 1238.167 / 3776.803 Output Total 300 / 850 Balance 938.167 / 2926.803 Weight last 48 hrs Weight 138 lb 8 oz Physical Exam Narrative: General: Alert and oriented x3 Cardiac: Regular rate and rhythm without murmurs Lungs: Clear to auscultation bilaterally without wheezes, crackles or rhonchi Abdomen: Soft, non-tender, fundus firm and below the umbilicus Extremities:No edema to lower extremities Urinary Catheter Management: Slater: Cath Placed During This Visit: yes, but has since been removed by the nurse Reason for Continuing Indwelling Catheter: Decision to DC Catheter Urinary Catheter Date of Insertion: 07/27/23 Urinary Catheter Time of Insertion: 18:35 Date Urinary Catheter Removed: 07/27/23 Time Urinary Catheter Discontinued: 21:55 Data 07/28/23 10:00 A&P Assessment and plan (1) Spontaneous vaginal delivery: PPD #1 s/p without complication. Doing well. CBC later this morning. Continue routine PP care. May shower. Encourage ambulation, regular diet. Anticipate discharge tomorrow. Attestations Medical Necessity Statement*: Janine Rhodesris's hospital stay will require greater than 2 midnights for labor and delivery and care. Coding Level of Care Code Acute Code for Chg Fwd Diagnoses Spontaneous vaginal delivery O80
[2023-07-28] MEDS: docusate sodium 100 mg Capsule PO ×2 (09:54→20:06)
[2023-07-28] MEDS: PRENATAL VIT NO.130/IRON/FOLIC 1 EACH TABLET PO (09:54)
[2023-07-28 10:20] LABS: Hematocrit 32.3 % (36-47); Mean Corpuscular HGB Conc 32.8 g/dL (30-55); Mean Corpuscular Hemoglobin 27.9 pg (27-33); Mean Platelet Volume 9.4 fL (7.4-10.4); Platelet Count 220 10^3/cmm (157-399); Red Cell Distribution Width 13.5 % (12.1-15.1); White Blood Count 14.42 10^3/uL (4.5-13.0)
[2023-07-29 04:00] VITALS: BP 95/58; PULSE 80; RESP 18; TEMP 36.6; O2SAT 97
--- NOTE | 2023-07-29 07:42 | PM.OBGYDC ---
Discharge Providers [employer] Date of Admission: 07/27/23 09:38 Date of Discharge: 07/29/23 Attending Provider at Admission: Pinky Vick DO Attending Provider at Discharge: Pinky Vick DO Primary Care Provider: Pinky Vick DO Diagnoses at Discharge Discharge Diagnosis (1) Spontaneous vaginal delivery: Status: Acute Reason for Visit Reason for Visit: induction of labor Hospital Course Hospital Course Estimated blood loss (mL): 100 Pre-Delivery Course: Patient admitted on 07/27/2023 in the morning with initial SVE of 2/50/-3. Given 1 dose Cytotec with recheck approximately 4 hours with report of softer cervix on exam but continued at 2/50/-3. At that time moderate dose Pitocin was started. She slowly progressed to 3/70/-3 and following requested epidural. After epidural anesthesia was obtained SVE was 5/75/-3. Due to low maternal blood pressures with intermittent decelerations Pitocin was stopped. 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 At that time AROM was performed at 5 with clear fluid. Both mother and baby tolerated procedure well. After AROM SVE was 6/90/-3 after which she quickly progressed to complete. Delivery: Patient progressed to complete. Patient placed in lithotomy position. Patient pushed with adequate effort. Head delivered in JOB position, loose nuchal cord was present and was easily reduced. Shoulders and rest of body delivered without difficulty with adequate epidural anesthesia. Mouth and nares bulb suctioned. Infant placed on maternal abdomen. Cord clamped and cut after 1 minute delay. Placenta spontaneously delivered and intact. Pitocin started. Fundus was noted to be firm. The vagina and cervix were inspected and noted to have left periurethral first-degree laceration which was noted to be hemostatic and not repaired. Right labial abrasion also noted. Fundus was again noted to be firm. Female born at 2157 with 8/9 weighing 7 pounds 3 ounces and measuring 21.25 inches in length, 13.75 inches head circumference and 13.5 inches chest circumference. Placenta noted to be intact with centrally inserted umbilical cord with three-vessel cord. Complications: Maternal none Infant none course: Patient underwent on 07/27/23. course was uncomplicated. Following delivery patient ambulated well, tolerated a normal diet without nausea or vomiting. Pain was well controlled on PO medications, exclusively, no leg/calf pain, no calf/leg swelling, normal urination, passing gas and normal bowel movements. Vaginal bleeding thin lochia and decreasing. labs significant for hemoglobin 10.6 down from 11.4 on admission. Follow-up planned for 2 and 6 weeks . Warning signs for endometritis, pre-eclampsia, DVT/PE, mastitis were reviewed, discussed additional warning signs including increased vaginal bleeding, worsening abdominal pain. Pelvic rest and activity precautions reviewed as well. She is discharged on 07/29/23 in stable condition. Information Peripartum Data: Delivery Method: Vaginal Physical Exam Narrative: General: Alert and oriented x3 Cardiac: Regular rate and rhythm without murmurs Lungs: Clear to auscultation bilaterally without wheezes, crackles or rhonchi Abdomen: Soft, non-tender, fundus firm and below the umbilicus Extremities:No edema to lower extremities Urinary Catheter Management: Slater: Cath Placed During This Visit: yes, but has since been removed by the nurse Reason for Continuing Indwelling Catheter: Decision to DC Catheter Urinary Catheter Date of Insertion: 07/27/23 Urinary Catheter Time of Insertion: 18:35 Date Urinary Catheter Removed: 07/27/23 Time Urinary Catheter Discontinued: 21:55 History History History 2 Term 2 0 Miscarriages/Ectopic 0 Living Children 2 Past Pregnancies Del. Date GA/Weeks Outcome Route Wt Inf Gender Labor Lgth Comp. Anesthesia Location 01/19/22 39 live - full term Vaginal 7 lb 2 oz Female 15 hrs regional [facility] - Dr Vick Discharge Data Studies Completed and Pending Laboratory Results WBC 14.42 10^3/uL (4.5-13.0) H 07/28/23 10:00 RBC 3.80 10^6/uL (3.85-5.65) L 07/28/23 10:00 Hgb 10.60 g/dL (12.4-14.8) L 07/28/23 10:00 Hct 32.3 % (36-47) L 07/28/23 10:00 MCV 85.0 fl (85-98) 07/28/23 10:00 MCH 27.9 pg (27-33) 07/28/23 10:00 MCHC 32.8 g/dL (30-55) 07/28/23 10:00 RDW 13.5 % (12.1-15.1) 07/28/23 10:00 Plt Count 220 10^3/cmm (157-399) 07/28/23 10:00 MPV 9.4 fL (7.4-10.4) 07/28/23 10:00 Neut % (Auto) 65.5 % 07/27/23 06:25 Lymph % (Auto) 25.3 % 07/27/23 06:25 Converse % (Auto) 7.0 % 07/27/23 06:25 Eos % (Auto) 0.9 % 07/27/23 06:25 Baso % (Auto) 0.4 % 07/27/23 06:25 Neut # (Auto) 7.97 10^3/uL (1.8-8.0) 07/27/23 06:25 Lymph # (Auto) 3.1 10^3/uL (1.5-6.5) 07/27/23 06:25 Converse # (Auto) 0.9 10^3/uL (0.2-0.9) 07/27/23 06:25 Eos # (Auto) 0.1 10^3/uL (0.0-0.8) 07/27/23 06:25 Baso # (Auto) 0.1 10^3/uL (0.0-0.1) 07/27/23 06:25 Nucleated RBC % (auto) 0 % 07/27/23 06:25 Nucleated RBCs # 0.0 /100WBC 07/27/23 06:25 Blood Type A Positive 07/27/23 06:25 Rho(D) Type Rh positive 07/27/23 06:25 Antibody Screen Negative 07/27/23 06:25 Vitals Last Vital Signs Temp 97.8 F 07/29/23 04:00 Pulse 80 07/29/23 04:00 Resp 18 07/29/23 04:00 BP 95/58 07/29/23 04:00 Pulse Ox 97 07/29/23 04:00 O2 Del Method Room Air 07/29/23 04:00 Results Labs OB ([facility]): Obstetrics US 07/25/23 Blood Type A Positive 07/27/23 Antibody Screen Negative 07/27/23 Hct 32.3 % (36-47) L 07/28/23 Hgb 10.60 g/dL (12.4-14.8) L 07/28/23 Rho(D) Type Rh positive 07/27/23 Plt Count 220 10^3/cmm (157-399) 07/28/23 Discharge Plan Discharge Patient Disposition: Home Condition: Stable Prescriptions: New ibuprofen 800 mg Tablet 800 mg PO TID Qty: 90 0RF docusate sodium 100 mg Capsule 100 mg PO BID Qty: 60 0RF Continued -U 106.5-1 mg Capsule 1 cap PO DAILY Qty: 90 0RF Discharge Orders: Discharge Order (Routine); Ordered 07/29/23 Ordered By: Pinky Vick Referrals: Pinky Vick DO [Primary Care Provider] - 08/11/23 9:30 am (6 week follow up on 09/08/23 @ 10:00 am) Discharge Diet: Regular Discharge Activity: Increase activity as tolerated Patient Instructions: Depression (DC), Opioid Safety (DC), Preeclampsia and Eclampsia After Delivery (GEN), Hemorrhage (DC), OB Discharge Report, OB Food/Drug Interaction Guide, OB Care at Home, Opioid Safety, OB Vaginal Deliveries, Abnormal Bleeding Activity Restrictions/Additional Instructions: Pelvic rest for 6 weeks. Discharge Attestations [employer] Time Spent in Discharge Care*: less than 30 min Coding Level of Care Code Acute Code for Chg Fwd Diagnoses Spontaneous vaginal delivery O80
--- NOTE | 2023-07-29 08:00 | ANE.PACU2 ---
Inpatient post-anesthesia follow up: Airway intact: Yes Vital signs: Temperature 97.7 F Pulse Rate 80 Respiratory Rate 17 Blood Pressure 97/62 Pulse Oximetry 97 Oxygen Delivery Me thod Room Air Oxygen Flow Rate Fraction of Inspir ed Oxygen Hydration adequate: Yes Nausea and vomiting: No Pain level: 1 Mental status: Baseline Epidural Start/End: Epidural Start Date: 07/27/23 Epidural Start Time: 18:05 Epidural End Date: 07/27/23 Epidural End Time: 23:55
[2023-07-29] MEDS: ibuprofen 800 mg tablet PO (09:44)
[2023-07-29] MEDS: PRENATAL VIT NO.130/IRON/FOLIC 1 EACH TABLET PO (09:44)
[2023-07-29] MEDS: docusate sodium 100 mg Capsule PO (09:44)
[2023-07-29 10:47] VITALS: BP 97/62; PULSE 80; RESP 17; TEMP 36.5
[2023-07-29 11:15] VITALS: BP 97/62; PULSE 80; RESP 17; TEMP 36.5
== END 2023-07-29 11:15 | disposition home or self-care (01) | DRG 807 ==
LOC: OPOB 07-28 08:51
PROVIDERS: Admitting Provider Family Medicine; PCP Family Medicine; Visit Provider Family Medicine
DX: O99.334 Smoking (tobacco) complicating childbirth (principal); Z37.0 Single live birth; F17.200 Nicotine dependence, unspecified, uncomplicated; O70.0 First degree perineal laceration during delivery; O76 Abnormality in fetal heart rate and rhythm complicating labor and delivery; O69.81X0 Labor and delivery complicated by cord around neck, without compression, not applicable or unspecified; O26.53 Maternal hypotension syndrome, third trimester; Z3A.39 39 weeks gestation of pregnancy
CPT/HCPCS: 36415; 51702; 59025; 59409; 85025; 85027; 86850; 86900; 96374; 98960; 99211; J2590; J2795; J3010; J7120; J7121